=== PATIENT | female | born 1975 | race African-American/Black ===

== ENCOUNTER 2019-03-13 09:25 | Emergency (ER) | payer OTHER ==
[~2019-03-13] VITALS: Ht 165.1 cm; Wt 90.9 kg
[2019-03-13 09:41] VITALS: Ht 165.1 cm; Wt 90.9 kg
[2019-03-13] MEDS ORDERED: NEXIUM20 MG PO (09:44)
[2019-03-13] MEDS ORDERED: ZPAK PO (10:29)
[2019-03-13] MEDS ORDERED: STERAPRED DS 1010 MG PO (10:29)
[2019-03-13 10:50] VITALS: BP 124/80
== END 2019-03-13 10:52 | disposition home or self-care (01) ==
LOC: D.ER 09:25
DX: J02.9 Acute pharyngitis, unspecified (principal); J06.9 Acute upper respiratory infection, unspecified; E07.9 Disorder of thyroid, unspecified; Z72.0 Tobacco use